=== PATIENT | female | born 1985 | race Caucasian/White ===

== ENCOUNTER 2020-05-03 10:27 | Observation (INO) ==
[2020-05-03] MEDS ORDERED: ONDANSETRON INJ 2 MG/ML 2 ML VIAL IV STA (11:14)
[2020-05-03] MEDS ORDERED: SODIUM CHLORIDE 0.9% 1000ML 1,000 ML IV SCH (11:15)
--- NOTE | 2020-05-03 11:37 | XRay Report ---
KUB HISTORY: Generalized abdominal pain COMPARISON: Abdominal series 05/02/2020. FINDINGS: The bowel gas pattern is unremarkable. There are no dilated loops of small bowel to suggest an obstruction. No renal or ureteral calculi. A common bile duct stent is unchanged in position. A few punctate calcifications in the deep pelvis likely represent phleboliths. No pneumoperitoneum or p neumatosis. IMPRESSION: Unremarkable bowel gas pattern. No evidence for bowel obstruction. Common bile duct stent is unchange d in position. ACT 112: Negative or not required by law. Electronically signed by: Fer Allen M.D. 05/03/2020 11:36 AM
--- NOTE | 2020-05-03 11:38 | XRay Report ---
XR chest 1V portable HISTORY: Atypical chest pain COMPARISON: Abdominal series 05/02/2020. FINDINGS: The lungs are clear. Cardiac silhouette is normal in size. No pleural effusions. No pneumot horax. IMPRESSION: No acute process. ACT 112: Negative or not required by law. Electronically signed by: Fer Allen M.D. 05/03/2020 11:37 AM
[2020-05-03 11:40] LABS: Basophils # (auto) 0.01 K/uL (0-0.2); Basophils % (auto) 0.1 %; Eosinophils # (auto) 0.11 K/uL (0-0.5); Eosinophils % (auto) 1.3 %; Hematocrit (blood only) 38.5 % (37-47); Hemoglobin 12.8 g/dL (12.0-16.0); Immature Granulocytes # (auto) 0.01 K/uL (0.00-0.02); Immature Granulocytes % (auto) 0.1 %; Lymphocytes # (auto) 2.48 K/uL (1.2-3.4); Lymphocytes % (auto) 29.5 %; Mean Corpuscular Hemoglobin 27.9 pg (25-34); Mean Corpuscular Hgb Conc 33.2 g/dL (32-36); Mean Corpuscular Volume 83.9 fL (80-100); Mean Platelet Volume 11.3 fL (7.4-10.4); Monocytes # (auto) 0.46 K/uL (0.11-0.59); Monocytes % (auto) 5.5 %; Neutrophils # (auto) 5.34 K/uL (1.4-6.5); Neutrophils % (auto) 63.5 %; Platelet Count 188 K/uL (130-400); RDW Coefficient of Variation 13.6 % (11.5-14.5); RDW Standard Deviation 41.6 fL (36.4-46.3); Red Blood Count 4.59 M/uL (4.2-5.4); White Blood Count 8.41 K/uL (4.8-10.8)
[2020-05-03 11:52] LABS: Appearance Urine Cloudy (Clear); Bacteria Urine Automated Negative (Negative); Blood Urine 3+ (Negative); Color Urine Dark Yellow; Epithelial Cell Urine Auto >30 /lpf (0-5); Glucose Urine UA Negative (Negative); Ketones Urine Trace (Negative); Leukocyte Esterase Urine Trace (Negative); Nitrite Urine Negative (Negative); Protein Urine Trace (Negative); Specific Gravity Urine 1.032 (1.000-1.030); Urobilinogen Urine Negative (Negative)
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
[2020-05-03 11:56] LABS: Albumin Level 3.6 gm/dl (3.4-5.0); BUN Creatinine Ratio 19.6 (10-20); Est GFR (African American) 110.6; Est GFR (Non-African American) 95.4; Potassium 3.6 mmol/L (3.5-5.1)
[2020-05-03 11:57] LABS: Bilirubin Urine Negative (Negative); Ictotest Urine Negative (Negative)
[2020-05-03 12:00] LABS: Pregnancy Test, Serum Negative (Negative)
[2020-05-03 12:04] LABS: Albumin Globulin Ratio 1.2 (0.9-2); Bilirubin,Total 0.5 mg/dl (0.2-1); Cast Urine Automated 0 /lpf (0-5); Globulin 3.1 gm/dl (2.5-4.0); Mucus Urine Present (None Prsent); Total Protein 6.7 gm/dl (6.4-8.2)
[2020-05-03 12:11] LABS: Amphetamines+Metham, Urine Neg (Neg); Barbiturates, Urine Neg (Neg); Benzodiazepine, Urine Neg (Neg); Cocaine, Urine Neg (Neg); MDMA (Ecstacy), Urine Neg (Neg); Methadone, Urine Neg (Neg); Opiate, Urine Pos (Neg); Phencyclidine, Urine Neg (Neg)
[2020-05-03] MEDS: fentaNYL citrate 100 MCG/2 ML VIAL IV PRN ×2 (12:16→12:49)
--- NOTE | 2020-05-03 12:55 | Gastrointestinal Consultation ---
Date of Consultation May 03, 2020 Assessment & Plan (1) Acute pancreatitis after endoscopic retrograde cholangiopancreatography (ERCP): 35 y/o female with h/o CBD stone s/p extraction during ERCP on 05/01/20, presents for the second time in 2 days with abd pain, lipase 2600 and LFTs, WBC WNL, US yesterday with cholelithiasis, CBD 6 mm. Presentation c/w mild acute pancreatitis. - Recommend IVF with lactated ringers at 200 mL/hr - Analgesia PRN (pt is on Suboxone chronically) - Antiemetics PRN - Keep NPO - Trend lipase, LFTs, CBC - Consult general surgery for consideration of cholecystectomy this admission - Recommend tobacco avoidance Thank you for allowing us to participate in the care of this patient. Please call with any acute changes, questions or concerns. Please see addendum below with additional recommendation from my supervising physician. Supervising Physician Co-Signing Physician Notes I performed a history and physical examination of the patient today, including specifically on physical exam - soft abdomen. I have discussed the patient's management with the advanced practitioner. Please refer to the nurse practitioner's note for the documented findings and plan of care. Mild elevation in lipase post ERCP, feeling better now however needs cholecystectomy as she may have passed stones after her ERCP causing her pancreatitis. History of Present Illness History of Present Illness Pt is a 35 y/o female with PMHx substance abuse on Suboxone, who on 05/01/20 underwent ERCP with CBD stone extraction and placement of one plastic CBD stent (to be removed in 6 weeks); pt was referred for gen surg eval for cholecystectomy. She was seen back in the ER with abd pain yesterday and lipase was < 1,000, normal WBC, LFTs, KUB w/o free air, US unremarkable other than cholelithiasis. She was dc'd with pain control. Pt returned to the ER today with ongoing abd pain. Today lipase is 2,600, and LFTs, tbili, WBC still WNL. Repeat KUB unremarkable, CXR neg. She's afebrile. Has not eaten anything since Jello yesterday. She would like to have eval this admission cholecystectomy as she "can't wait any longer." No BM since Friday. Denies vomiting, hematemesis, melena, hematochezia, gas/bloating, fever, chills, jaundice, dark urine, win stool, chest pain, dyspnea. She does smoke; no ETOH. Allergies Allergy/AdvReac Type Severity Reaction Status Date / Time No Known Allergies Allergy Verified 05/03/20 11:54 Home Medications Home Medications Medication Instructions Recorded Confirmed Type buprenorphine HCl 2 - 4 mg SUBLINGUAL 05/18/19 05/03/20 History DAILY@0900,1400,2100 pantoprazole [Protonix] 40 mg PO QAM 04/27/20 05/03/20 History sucralfate [Carafate] 1 g PO ACHS 04/27/20 05/03/20 History ibuprofen 600 mg PO Q6H PRN 05/02/20 05/03/20 History tramadol 50 mg PO BID PRN 05/02/20 05/03/20 History Patient History Medical History Acute pancreatitis after endoscopic retrograde cholangiopancreatography (ERCP) Buprenorphine dependence Gall stones abdominal pain and poss stone lodge in duct GERD (gastroesophageal reflux disease) Hx of renal calculi Smoker Surgical History (Updated 05/03/20 @ 17:18 by Jose Barboza MD) History of kidney surgery repair of floating kidney and repair ureter Hx of section x 3 S/P ERCP (Inactive) 05/01/2020. MAC 4. Grade 1 view. 7.5ETT No issues. 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 Beliefs That Will Affect Care: None marital status: Single Current Living Situation: Family current occupational status: employed Other Information That Helps Us Care for You: No Feels Safe at Home: Yes Safety Concerns: Feels Safe At This Time Smoking Status: Current every day smoker Tobacco Type: cigarettes ; Cigarettes Per Day: 1/2 ppd ; Do You Dip or Chew Tobacco: No ; Second Hand Exposure: No ; Tobacco Cessation Education Requested by Patient: No Hx Alcohol Use: Yes Alcohol type: beer, wine and hard liquor Alcohol Intake Frequency: Daily Alcohol Intake Frequency Comment: Quit 6 years ago Hx Substance Use: No Review of Systems Constitutional: no fever and no chills Respiratory: no cough and no dyspnea Cardiovascular: no chest pain and no edema Additional Comments: no h/o CHF Gastrointestinal: as per Subjective / HPI Integumentary: no rash and no yellowing of the skin Physical Exam Constitutional: WD/WN, vitals as above no acute distress Eyes: + anicteric sclerae Respiratory: normal respiratory effort, lungs clear to auscultation Cardiovascular: Rate/Rhythm: regular rate and regular rhythm Extremities: no edema Gastrointestinal (Abdomen): Inspection/Auscultation: abdomen normal to inspection; abdomen not distended Percussion/Palpation: abdomen soft; no guarding mild generalized tenderness but moreso in the epigastrium/RUQ Skin: no rashes, warm and dry no jaundice Psychiatric: A+Ox3, euthymic affect Results & Data ([facility]) Vital Signs (Past 12 Hours) Vital Signs Temp Pulse Pulse Resp BP BP Pulse Ox 05/03/20 12:13 40 L 16 125/69 98 05/03/20 10:53 36.8 C 62 20 126/87 100 Laboratory Results 05/03/20 05/03/20 05/03/20 Range/Units 11:20 11:20 11:20 WBC (4.8-10.8) K/uL RBC (4.2-5.4) M/uL Hgb (12.0-16.0) g/dL Hct (37-47) % MCV (80-100) fL MCH (25-34) pg MCHC (32-36) g/dL RDW Std Deviation (36.4-46.3) fL RDW Coeff of Faizan (11.5-14.5) % Plt Count (130-400) K/uL MPV (7.4-10.4) fL Immature Gran % (Auto) % Neut % (Auto) % Lymph % (Auto) % [place] % (Auto) % Eos % (Auto) % Baso % (Auto) % Immature Gran # (Auto) (0.00-0.02) K/uL Neut # (Auto) (1.4-6.5) K/uL Lymph # (Auto) (1.2-3.4) K/uL [place] # (Auto) (0.11-0.59) K/uL Eos # (Auto) (0-0.5) K/uL Baso # (Auto) (0-0.2) K/uL Sodium (136-145) mmol/L Potassium (3.5-5.1) mmol/L Chloride (98-107) mmol/L Carbon Dioxide (21-32) mmol/L Anion Gap (3-11) BUN (7-18) mg/dl Creatinine (0.6-1.2) mg/dl Est Cr Clr Drug Dosing ml/min Est GFR ( Amer) Est GFR (Non-Af Amer) BUN/Creatinine Ratio (10-20) Glucose (70-99) mg/dl Calcium (8.5-10.1) mg/dl Total Bilirubin (0.2-1) mg/dl AST (15-37) U/L ALT (12-78) U/L Alkaline Phosphatase (45-117) U/L Total Protein (6.4-8.2) gm/dl Albumin (3.4-5.0) gm/dl Globulin (2.5-4.0) gm/dl Albumin/Globulin Ratio (0.9-2) Lipase (73-393) U/L HCG, Qual (Negative) Urine Color Dark Yellow Urine Appearance Cloudy A (Clear) Urine pH 5.0 (4.5-7.5) Ur Specific [place] 1.032 H (1.000-1.030) Urine Protein Trace H (Negative) Urine Glucose (UA) Negative (Negative) Urine Ketones Trace H (Negative) Urine Blood 3+ H (Negative) Urine Nitrite Negative (Negative) Urine Bilirubin Negative (Negative) Urine Urobilinogen Negative (Negative) Ur Leukocyte Esterase Trace H (Negative) Urine WBC (Auto) 1-5 (0-5) /hpf Urine RBC (Auto) 5-10 H (0-4) /hpf U Hyaline Cast (Auto) 0 (0-5) /lpf U Epithel Cells (Auto) >30 H (0-5) /lpf Urine Bacteria (Auto) Negative (Negative) Urine Mucus Present A (None Prsent) Urine Opiates Screen Pos H (Neg) U Codeine Confrm GC/MS Pending Ur Morphine (GC/MS) Pending Ur Hydrocodone (GC/MS) Pending Ur Norhydrocodone Pending Ur Noroxycodone Pending Urine Oxycodone (GC/MS) Pending U Oxymorphone GC/MS Pending Ur Methadone, Qual Neg (Neg) Ur Hydromorphone (GC/MS) Pending Urine Barbiturates Neg (Neg) Ur Phencyclidine (PCP) Neg (Neg) U Amphetamin/Meth Scrn Neg (Neg) MDMA (Ecstasy) Screen Neg (Neg) U Benzodiazepines Scrn Neg (Neg) Ur Cocaine Metabolite Neg (Neg) U Marijuana (THC) Screen Pos H (Neg) U Marijuana THC Carboxy Pending Drug Screen Comment Pending 05/03/20 05/03/20 05/03/20 Range/Units 11:20 11:20 11:20 WBC 8.41 (4.8-10.8) K/uL RBC 4.59 (4.2-5.4) M/uL Hgb 12.8 (12.0-16.0) g/dL Hct 38.5 (37-47) % MCV 83.9 (80-100) fL MCH 27.9 (25-34) pg MCHC 33.2 (32-36) g/dL RDW Std Deviation 41.6 (36.4-46.3) fL RDW Coeff of Faizan 13.6 (11.5-14.5) % Plt Count 188 (130-400) K/uL MPV 11.3 H (7.4-10.4) fL Immature Gran % (Auto) 0.1 % Neut % (Auto) 63.5 % Lymph % (Auto) 29.5 % [place] % (Auto) 5.5 % Eos % (Auto) 1.3 % Baso % (Auto) 0.1 % Immature Gran # (Auto) 0.01 (0.00-0.02) K/uL Neut # (Auto) 5.34 (1.4-6.5) K/uL Lymph # (Auto) 2.48 (1.2-3.4) K/uL [place] # (Auto) 0.46 (0.11-0.59) K/uL Eos # (Auto) 0.11 (0-0.5) K/uL Baso # (Auto) 0.01 (0-0.2) K/uL Sodium 139 (136-145) mmol/L Potassium 3.6 (3.5-5.1) mmol/L Chloride 108 H (98-107) mmol/L Carbon Dioxide 27 (21-32) mmol/L Anion Gap 4.0 (3-11) BUN 16 (7-18) mg/dl Creatinine 0.81 (0.6-1.2) mg/dl Est Cr Clr Drug Dosing 107.0 ml/min Est GFR ( Amer) 110.6 Est GFR (Non-Af Amer) 95.4 BUN/Creatinine Ratio 19.6 (10-20) Glucose 93 (70-99) mg/dl Calcium 9.0 (8.5-10.1) mg/dl Total Bilirubin 0.5 (0.2-1) mg/dl AST 22 (15-37) U/L ALT 33 (12-78) U/L Alkaline Phosphatase 54 (45-117) U/L Total Protein 6.7 (6.4-8.2) gm/dl Albumin 3.6 (3.4-5.0) gm/dl Globulin 3.1 (2.5-4.0) gm/dl Albumin/Globulin Ratio 1.2 (0.9-2) Lipase 2653 H (73-393) U/L HCG, Qual Negative (Negative) Urine Color Urine Appearance (Clear) Urine pH (4.5-7.5) Ur Specific [place] (1.000-1.030) Urine Protein (Negative) Urine Glucose (UA) (Negative) Urine Ketones (Negative) Urine Blood (Negative) Urine Nitrite (Negative) Urine Bilirubin (Negative) Urine Urobilinogen (Negative) Ur Leukocyte Esterase (Negative) Urine WBC (Auto) (0-5) /hpf Urine RBC (Auto) (0-4) /hpf U Hyaline Cast (Auto) (0-5) /lpf U Epithel Cells (Auto) (0-5) /lpf Urine Bacteria (Auto) (Negative) Urine Mucus (None Prsent) Urine Opiates Screen (Neg) U Codeine Confrm GC/MS Ur Morphine (GC/MS) Ur Hydrocodone (GC/MS) Ur Norhydrocodone Ur Noroxycodone Urine Oxycodone (GC/MS) U Oxymorphone GC/MS Ur Methadone, Qual (Neg) Ur Hydromorphone (GC/MS) Urine Barbiturates (Neg) Ur Phencyclidine (PCP) (Neg) U Amphetamin/Meth Scrn (Neg) MDMA (Ecstasy) Screen (Neg) U Benzodiazepines Scrn (Neg) Ur Cocaine Metabolite (Neg) U Marijuana (THC) Screen (Neg) U Marijuana THC Carboxy Drug Screen Comment
--- NOTE | 2020-05-03 13:32 | History & Physical Report ---
Date of Service May 03, 2020 Assessment & Plan (1) Acute pancreatitis after endoscopic retrograde cholangiopancreatography (ERCP): This is a 35-year-old female who has significant PMH of drug abuse, tobacco abuse, GERD, BEE who presents to ED secondary to abdominal pain x2 days. Of significance patient underwent EGD, EUS and ERCP on 05/01/[address] Castaneda. S/P EGD, EUS, ERCP with stone extraction, sphincterotomy and biliary stent placement on 05/01/[address] Castaneda. Now presents with post ERCP pancreatitis, Lipase 2,653 ( was 914 05/02/2020). LFTS unremarkable. Afebrile. No s/sx of SIRS/Sepsis. Admit to med/surg Consult GI - appreciate their input NPO LR @ 200cc/hr IV morphine q4h prn pain consult surgery per GI for evaluation for cholecystectomy this admission follow LFT, Lipase Senna S daily to prevent constipation prn antiemetics (2) Buprenorphine dependence: pt is currently taking 8mg subutex daily, split into 3 doses. She does not get this prescribed and takes her boyfriends supply. She states Suboxone does not work for her and this is why she stopped seeing pain management because that is all they would prescribe her. "If I don't take subutex I relapse." Pt will need referral to appropriate pain management prior to discharge/or consult inpatient hold subutex for now as she will be receiving IV morphine monitor closely (3) Tobacco abuse: smoking cessation encouraged and counseled declines nicotine patch at this time (4) GERD (gastroesophageal reflux disease): give pepcid 20mg IVP x 1 now continue PPI, carafate as prescribed (5) DVT prophylaxis: SCDs, teds, encourage ambulation Disposition: Admit to medical Follow-up: PCP Dr. Bernard upon discharge Patient was seen and examined in collaboration with Dr. Spann, please see addendum History of Present Illness Chief Complaint: Abdominal pain x 2 days. Primary Care Provider: Juvencio Bernard MD This is a 35-year-old female who has significant PMH of drug abuse, tobacco abuse, GERD, BEE who presents to ED secondary to abdominal pain x2 days. Of significance patient underwent EGD, EUS and ERCP on 05/01/[address] Castaneda. 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 She was discharged to home on day of surgery. She admits to ever since waking up from surgery having abdominal pain that continues to get worse. Pain is mostly in the epigastrium but does radiate to right upper and left upper quadrants. Pain is constant, made worse with movement and deep breathing, improved with rest, rated 10 on a 10. She denies any associated fever, chills, sweats, nausea, vomiting, chest pain, or shortness of breath, dysuria, increased urgency or frequency with urination. She does complain of hematuria secondary to current menses. She has not had a BM since surgery but has been belching. Of significance prior to surgery she did undergo GI work-up secondary to abdominal pain and bloating. She did have a right upper quadrant ultrasound which revealed diffuse increased echogenicity in the liver with classified as a nonspecific finding. Could be related to fatty infiltration versus other diffuse hepatocellular processes. Also revealed cholelithiasis, CBD increased at 6.3 mm in diameter. This prompted the above procedure. She also underwent gastric emptying study which did reveal delayed emptying. It is recommended she has an eventual cholecystectomy. She has tried tramadol and Percocet for her pain without relief. She is also been smoking marijuana, last use this morning which did alleviate pain. She denies ASA or NSAID use. Unfortunately she does have history of drug abuse in which she is currently taking Subutex. The Subu jesús is not prescribed by physician as she takes her boyfriends, up to 8 mg a day. She was seen and evaluated in ED yesterday, 05/02, secondary to worsening abdominal pain. She was found to have elevated lipase in the 900s. She was seen and evaluated by GI in ED who felt pain was out of proportion to current condition. She was hydrated appropriately and discharged home on a few Percocet. Unfortunately she presented back today with return of abdominal pain and lipase not elevated greater than 2000. In ED CBC and CMP relatively unremarkable. Lipase elevated at 2653. Beta hCG negative. Urinalysis consistent with dehydration. Urine drug screen positive for opiates and marijuana. Chest x-ray and KUB were unremarkable. KUB did reveal biliary stent placement. She remained hemodynamically stable in ED. She did receive 1 L IVF along with IV fentanyl. Allergies Allergy/AdvReac Type Severity Reaction Status Date / Time No Known Allergies Allergy Verified 05/03/20 11:54 Home Medications Home Medications Medication Instructions Recorded Confirmed Type buprenorphine HCl 2 - 4 mg SUBLINGUAL 05/18/19 05/03/20 History DAILY@0900,1400,2100 pantoprazole [Protonix] 40 mg PO QAM 04/27/20 05/03/20 History sucralfate [Carafate] 1 g PO ACHS 04/27/20 05/03/20 History ibuprofen 600 mg PO Q6H PRN 05/02/20 05/03/20 History tramadol 50 mg PO BID PRN 05/02/20 05/03/20 History Past Med/Surg History Medical History Buprenorphine dependence Gall stones abdominal pain and poss stone lodge in duct GERD (gastroesophageal reflux disease) Hx of renal calculi Smoker Surgical History History of kidney surgery repair of floating kidney and repair ureter Hx of section x 3 Family History Father Hypertension Alcohol abuse Social History Preferred Language: [place]ian Communication Ability: Effective Brush Hand Required: No Beliefs That Will Affect Care: None marital status: Single Current Living Situation: Family current occupational status: employed Other Information That Helps Us Care for You: No Feels Safe at Home: Yes Safety Concerns: Feels Safe At This Time Smoking Status: Current every day smoker Tobacco Type: cigarettes ; Cigarettes Per Day: 1/2 ppd ; Do You Dip or Chew Tobacco: No ; Second Hand Exposure: No ; Tobacco Cessation Education Requested by Patient: No Hx Alcohol Use: Yes Alcohol type: beer, wine and hard liquor Alcohol Intake Frequency: Daily Alcohol Intake Frequency Comment: Quit 6 years ago Hx Substance Use: No Review of Systems Review of Systems: All systems reviewed & are unremarkable except as noted in HPI & below Physical Exam Physical Exam: Constitutional: WD/WN, female, vitals as above, NAD, sitting up in bed, pleasant, conversing easily Head: Normocephalic, Atraumatic Eyes: PERRL, conjunctivae normal, anicteric sclerae ENMT: external ear and nose normal, oropharynx normal, dry membranes Neck: trachea midline, no thyromegaly normal visual inspection Respiratory: normal respiratory effort, lungs clear to auscultation, no wheeze, rales, rhonchi. Normal insp/exp effort, no accessory muscle use Cardiovascular: RRR, no murmur, no edema, lower extremity varicosities. vessels: no JVD or carotid bruit Chest: normal inspection of chest Abdomen: Diminished bowel sounds, distended abdomen, soft, diffusely tender, no rebound, no guarding, no rigidity, no hepatosplenomegaly Musculoskeletal: no cyanosis or clubbing, extremities motor strength 5/5 Skin: no rashes, warm and dry normal turgor Neurologic: PERRL, EOMI, accommodation nl, no face palsy, no dysarthria CN's II-XI intact bilaterally and moves all extremities Psychiatric: A+Ox3, euthymic affect Lymphatic: no cervical or axillary lymphadenopathy : deferred Results & Data Results & Data ([facility]) Vital Signs (Past 12 Hours) Vital Signs Temp Pulse Pulse Resp BP BP Pulse Ox 05/03/20 13:00 53 L 23 122/86 100 05/03/20 12:30 51 L 20 119/65 98 05/03/20 12:13 40 L 16 125/69 98 05/03/20 12:00 48 L 16 125/69 98 05/03/20 10:53 36.8 C 62 20 126/87 100 Laboratory Results Short CBC 05/03/20 Range/Units 11:20 WBC 8.41 (4.8-10.8) K/uL Hgb 12.8 (12.0-16.0) g/dL Hct 38.5 (37-47) % Plt Count 188 (130-400) K/uL BMP 05/03/20 11:20 Sodium 139 Potassium 3.6 Chloride 108 H Carbon Dioxide 27 BUN 16 Creatinine 0.81 Glucose 93 Calcium 9.0 Liver Function 05/03/20 Range/Units 11:20 Total Bilirubin 0.5 (0.2-1) mg/dl AST 22 (15-37) U/L ALT 33 (12-78) U/L Alkaline Phosphatase 54 (45-117) U/L Albumin 3.6 (3.4-5.0) gm/dl Urine 05/03/20 Range/Units 11:20 Urine Color Dark Yellow Urine Appearance Cloudy A (Clear) Urine pH 5.0 (4.5-7.5) Ur Specific [place] 1.032 H (1.000-1.030) Urine Protein Trace H (Negative) Urine Glucose (UA) Negative (Negative) Diagnostic Findings CXR: IMPRESSION: No acute process. KUB: IMPRESSION: Unremarkable bowel gas pattern. No evidence for bowel obstruction. Common bile duct stent is unchanged in position. Medications Administered Fentanyl Citrate (Fentanyl Citrate) 50 mcg IV Q15M PRN PRN Reason: Pain Stop: 05/17/20 12:09 Last Admin: 05/03/20 12:49 Dose: 50 mcg Documented by: [id number] Admin: 05/03/20 12:16 Dose: 50 mcg Documented by: [id number] Discontinued Medications Sodium Chloride (Nss 1000ml) 1,000 mls @ 999 mls/hr IV .Q1H1M PAKO Stop: 05/03/20 12:15 Last Infusion: 05/03/20 12:33 Dose: 0 mls/hr Documented by: [id number] Admin: 05/03/20 11:35 Dose: 999 mls/hr Documented by: [id number] Ondansetron HCl (Zofran) 4 mg IV NOW STA Stop: 05/03/20 11:15 Last Admin: 05/03/20 11:35 Dose: 4 mg Documented by: [id number] Code Status & VTE Plan Code Status Full Code VTE Prophylaxis Plan VTE Prophylaxis will be ordered: Yes Supervising Physician Co-Signing Physician Notes Attending Addendum: care coordinated with LUIS Rucker please refer to her notes for full details, I agree with her notes patient seen and examined, records reviewed by myself as well on exam, patient seen with LUIS Amaya at bedside throughout whole encounter Patient reports severe epigastric pain radiating to her flanks, pressure, rated as 10 out of 10 when severe Also has intermittent nausea No fever or chills, shortness of breath, chest pain, palpitations, dizziness no other symptoms VS noted and reviewed oriented x 3, not in distress, speaks in sentences with no effort nor accessory muscle use normal rate, regular rhythm, no murmurs clear breath sounds bilaterally non distended, soft, positive moderate tenderness to epigastric region, no Thomas sign no bipedal edema, erythema, warmth no neuro deficits WBC 8.4 Hg 12.8 Crea 0.81 Lipase 2653 ASSESSMENT AND PLAN Post ERCP pancreatitis in the setting of cholelithiasis Status post ERCP, CBD stone removal, CBD stent placement 05/01/2020 --Vigorous lactated Ringer's, pain control with morphine as needed, n.p.o. --GI consulted, recommend general surgery consultation --General surgery recommends possible cholecystectomy tomorrow History of drug use --Patient admits to taking Subutex, from his significant other's prescription --Will be on PRN morphine at this time --Urine drug screen positive for opiates and marijuana --Counseling done Encouraged to follow with her own painter and body mechanic apprentice other diagnoses and plan of care as per LUIS Balderas notes Jez Spann MD
[2020-05-03] MEDS: LACTATED RINGER'S 1,000 ML IV SCH ×2 (14:00→19:47)
[2020-05-03] MEDS ORDERED: ACETAMINOPHEN 325 MG TAB PO PRN (14:04)
[2020-05-03] MEDS ORDERED: FAMOTIDINE 20MG/5ML IV PUSH IV STA (14:04)
[2020-05-03] MEDS ORDERED: ALUMINUM/MAGNESIUM SUSP 30 ML UDC PO PRN (14:04)
[2020-05-03] MEDS ORDERED: ONDANSETRON INJ 2 MG/ML 2 ML VIAL IV PRN (14:04)
[2020-05-03] MEDS ORDERED: FAMOTIDINE 20 MG in SYRINGE 3 ML IV ONE (14:30)
--- NOTE | 2020-05-03 14:40 | Surgery Consultation ---
Date of Consultation May 03, 2020 Assessment & Plan (1) Gallstones: This is a 35y F with a PMH of gallstones who presents to the [facility] ED on 05/03/20 with back/neck/and abdominal pain s/p ERCP performed on 05/01 now found to have pancreatitis. This is patient's second visit to the ED s/p GI procedure with complaints of persistent pain. Workup in the ED revealed + cholelithiasis without evidence of acute cholecystitis. LFT's within normal limits and WBC normal. Lipase is elevated >2000. On examination patient's abdomen is soft and she has generalized tenderness throughout, worse in the epigastric region. We have been asked to consider cholecystectomy this admission. We will trend patient's labs and tentatively place her on the OR schedule for tomorrow. Please keep NPO with IVF. Dr Thompson- pt seen- for lap rosey tomorrow if lipase decreasing History of Present Illness Attending Physician: Jez Spann MD History of Present Illness This is a 35y F with a PMH of gallstones who presents to the [facility] ED on 05/03/20 with back/neck/and abdominal pain. Of significance the patient was worked up as an outpatient for abdominal pain and was found to have cholelithiasis and dilated CBD. She underwent an ERCP on 05/01 where choledocholithiasis was found and removed, and biliary stent placed. Plan to follow up with surgery within a couple wks as an outpatient. Patient states that since awaking from the ERCP procedure she has had pain, mostly in her neck, back, and abdomen. She was discharged to home on Tramadol without any relief. She returned to the ED ye sterday where workup was overall unremarkable outside of a lipase of 914. RUQ US showed + stones without evidence of cholecystitis, with an appropriately placed stent. She was discharged to home with some Percocet. Today the patient continued with pain, went to see her PCP who per patient did not have much to offer, therefore she returned to the ED today. In the ED patient's labs show a WBC: 8.4, LFTs within normal limits, and Lipase elevated at 2653. Patient reports her pain is a 20/10. She endorses + nausea, difficulty taking a breath 2/2 pain. She denies vomiting, diarrhea, fevers, chills, or urinary symptoms. In regards to her abdominal pain it's mostly located in the upper abdomen and flanks. Her past abdominal surgeries include a x4 and laparoscopic surgery for a floating kidney. She was admitted under medicine with GI and surgical consultations. Allergies Allergy/AdvReac Type Severity Reaction Status Date / Time No Known Allergies Allergy Verified 05/03/20 11:54 Home Medications Home Medications Medication Instructions Recorded Confirmed Type buprenorphine HCl 2 - 4 mg SUBLINGUAL 05/18/19 05/03/20 History DAILY@0900,1400,2100 pantoprazole [Protonix] 40 mg PO QAM 04/27/20 05/03/20 History sucralfate [Carafate] 1 g PO ACHS 04/27/20 05/03/20 History ibuprofen 600 mg PO Q6H PRN 05/02/20 05/03/20 History tramadol 50 mg PO BID PRN 05/02/20 05/03/20 History Patient History Medical History Buprenorphine dependence Gall stones abdominal pain and poss stone lodge in duct GERD (gastroesophageal reflux disease) Hx of renal calculi Smoker Surgical History History of kidney surgery repair of floating kidney and repair ureter Hx of section x 3 Family History Father Hypertension Alcohol abuse Social History Preferred Language: Bahraini Communication Ability: Effective Manager Security And Safety Required: No Beliefs That Will Affect Care: None marital status: Single Current Living Situation: Family current occupational status: employed Other Information That Helps Us Care for You: No Feels Safe at Home: Yes Safety Concerns: Feels Safe At This Time Smoking Status: Current every day smoker Tobacco Type: cigarettes ; Cigarettes Per Day: 1/2 ppd ; Do You Dip or Chew Tobacco: No ; Second Hand Exposure: No ; Tobacco Cessation Education Requested by Patient: No Hx Alcohol Use: Yes Alcohol type: beer, wine and hard liquor Alcohol Intake Frequency: Daily Alcohol Intake Frequency Comment: Quit 6 years ago Hx Substance Use: No Review of Systems Constitutional: no fever and no chills Respiratory: some difficulty taking a breath due to pain Gastrointestinal: + abdominal pain and + nausea; no vomiting and no change in bowel habits Physical Exam Physical Exam: awake/alert Constitutional: well developed and well nourished; no acute distress Respiratory: normal respiratory effort Gastrointestinal (Abdomen): Inspection/Auscultation: + abdominal surgical scar ( and laparoscopic scars); abdomen not distended Percussion/Palpation: + abdomen tender (diffuse ttp of the abdomen, worse in epigastric region) and abdomen soft Results & Data Vital Signs (Past 12 Hours) Vital Signs Temp Pulse Pulse Resp BP BP Pulse Ox 05/03/20 14:05 36.7 C 43 L 18 131/62 98 05/03/20 13:00 53 L 23 122/86 100 05/03/20 12:30 51 L 20 119/65 98 05/03/20 12:13 40 L 16 125/69 98 05/03/20 12:00 48 L 16 125/69 98 05/03/20 10:53 36.8 C 62 20 126/87 100 KUB HISTORY: Generalized abdominal pain COMPARISON: Abdominal series 05/02/2020. FINDINGS: The bowel gas pattern is unremarkable. There are no dilated loops of small bowel to suggest an obstruction. No renal or ureteral calculi. A common bile duct stent is unchanged in position. A few punctate calcifications in the deep pelvis likely represent phleboliths. No pneumoperitoneum or pneumatosis. IMPRESSION: Unremarkable bowel gas pattern. No evidence for bowel obstruction. Common bile duct stent is unchanged in position. ACT 112: Negative or not required by law. Electronically signed by: Fer Allen M.D. 05/03/2020 11:36 AM ULTRASOUND RIGHT UPPER QUADRANT ABDOMEN CLINICAL HISTORY: Generalized abdominal pain. Recent ERCP and biliary stent placement. COMPARISON STUDY: Abdominal CT dated 08/08/2013. KUB dated 05/02/2020. TECHNIQUE: Real-time, grayscale, and color flow sonography of the right upper quadrant of the abdomen was performed. Images are reviewed in the transverse and longitudinal planes. FINDINGS: Liver: The liver is normal in size and echotexture. The liver is elongated suggesting Delicia's lobe variant anatomy. There is no intrahepatic biliary ductal dilatation. The main portal vein is patent. Gallbladder: The gallbladder is filled with numerous shadowing gallstones. There is no gallbladder wall thickening or pericholecystic fluid. A sonographic Thomas's sign is reportedly absent. The common bile duct measures up to 0.6 cm in diameter. The common bile duct stent is in place. Pancreas: Visualized portions of the pancreatic head and body are normal in appearance. Right kidney: Survey images of the right kidney demonstrate normal size and echotexture. There is no hydronephrosis. Ascites: None. IMPRESSION: 1. Cholelithiasis without sonographic evidence of acute cholecystitis. 2. A common bile duct stent is in place. No intrahepatic biliary ductal dilatation is identified. ACT 112: Negative or not required by law. Electronically signed by: Harvey Rene M.D. 05/02/2020 11:21 AM PG Care Time/CCT Total # of Minutes Spent Total Time Spent with Patient: Total time spent is greater than 50% in coordination of care (as documented) at patient's floor/unit and/or counseling patient: Coding Level of Care Code 91641 Office/OBS Consult Lvl 3 Diagnoses Gallstones K80.20
[2020-05-03] MEDS: SUCRALFATE 1 GM TAB PO SCH ×2 (15:30→20:49)
[2020-05-03] MEDS: DOCUSATE SODIUM/SENNA 50/8.6MG TAB PO SCH (15:31)
[2020-05-03] MEDS: MoRPHine SULFATE 4 MG/ML 1 ML CARP\\VIAL IV PRN ×2 (17:13→21:40)
--- NOTE | 2020-05-03 17:20 | Anesthesiology Consultation ---
Date of Service May 03, 2020 Assessment & Plan (1) Encounter for pre-operative examination: Chart Review Chart Review: Acceptable Risk for Surgery and Patient NOT seen in Pre Admission Testing Consults Requested none History Surgery Operation Date: 05/04/20 09:10 Proposed Procedures p Laparoscopic Cholecystectomy, Possible Cholangiogram - Casper Thompson MD, FACS Height/Weight Height: 5 ft 6 in Weight: 82.6 kg Allergies Allergy/AdvReac Type Severity Reaction Status Date / Time No Known Allergies Allergy Verified 05/03/20 11:54 Medications Home Medications Medication Instructions Recorded Confirmed Last Taken buprenorphine HCl 2 - 4 mg SUBLINGUAL 05/18/19 05/03/20 05/03/20 DAILY@0900,1400,2100 pantoprazole [Protonix] 40 mg PO QAM 04/27/20 05/03/20 05/03/20 sucralfate [Carafate] 1 g PO ACHS 04/27/20 05/03/20 05/03/20 ibuprofen 600 mg PO Q6H PRN 05/02/20 05/03/20 05/03/20 07:00 tramadol 50 mg PO BID PRN 05/02/20 05/03/20 05/03/20 01:00 Active Medications Generic Name Dose Route Start Last Admin Trade Name Freq PRN Reason Stop Dose Admin Lactated Ringer's 1,000 mls @ 200 mls/hr 05/03/20 14:00 05/03/20 14:00 Lr IV 06/02/20 13:59 200 mls/hr .Q5H PAKO Administration Morphine Sulfate 4 mg 05/03/20 14:04 05/03/20 17:13 Morphine Sulfate IV 05/17/20 14:03 4 mg Q4H PRN Administration Pain Senna/Docusate Sodium 1 tab 05/03/20 14:30 05/03/20 15:31 Senokot S PO 06/02/20 14:29 1 tab QAM PAKO Administration Sucralfate 1 gm 05/03/20 16:30 05/03/20 15:30 Carafate Tab PO 06/02/20 16:29 1 gm ACHS PAKO Administration Past Medical History Medical History Acute pancreatitis after endoscopic retrograde cholangiopancreatography (ERCP) Buprenorphine dependence Gall stones abdominal pain and poss stone lodge in duct GERD (gastroesophageal reflux disease) Hx of renal calculi Smoker Past Family History Family History Father Hypertension Alcohol abuse Past Surgical History Surgical History (Updated 05/03/20 @ 17:18 by Jose Barboza MD) History of kidney surgery repair of floating kidney and repair ureter Hx of section x 3 S/P ERCP (Inactive) 05/01/2020. MAC 4. Grade 1 view. 7.5ETT No issues. Past Anesthesia History No Hx of Anesthesia Complications and No Family Hx of Anesthesia Complications History of PONV No Hx of PONV and No Hx of Motion Sickness Social History Smoking Status: Current every day smoker tobacco type: cigarettes Smoking cigarettes per day: 1/2 ppd Do You Dip or Chew Tobacco: No Hx Alcohol Use: Yes Alcohol type: beer, wine and hard liquor alcohol intake frequency: other Alcohol Intake Frequency Comment: not drinking presently nor two years Hx Substance Use: No substance use type: former substance user and marijuana Physical Exam Vital Signs Last Vital Signs Temp 36.7 C 05/03/20 14:05 Pulse 43 L 05/03/20 14:05 Resp 18 05/03/20 14:05 BP 131/62 05/03/20 14:05 Pulse Ox 98 05/03/20 14:05 Testing Laboratory Results 05/03/20 11:20 05/03/20 11:20 Urine Color Dark Yellow 05/03/20 11:20 Urine Appearance Cloudy (Clear) A 05/03/20 11:20 Urine pH 5.0 (4.5-7.5) 05/03/20 11:20 Ur Specific [place] 1.032 (1.000-1.030) H 05/03/20 11:20 Urine Protein Trace (Negative) H 05/03/20 11:20 Urine Glucose (UA) Negative (Negative) 05/03/20 11:20 Urine Ketones Trace (Negative) H 05/03/20 11:20 Urine Nitrite Negative (Negative) 05/03/20 11:20 Ur Leukocyte Esterase Trace (Negative) H 05/03/20 11:20 Urine WBC (Auto) 1-5 /hpf (0-5) 05/03/20 11:20 Urine RBC (Auto) 5-10 /hpf (0-4) H 05/03/20 11:20 U Hyaline Cast (Auto) 0 /lpf (0-5) 05/03/20 11:20 U Epithel Cells (Auto) >30 /lpf (0-5) H 05/03/20 11:20 Urine Bacteria (Auto) Negative (Negative) 05/03/20 11:20
[2020-05-04] MEDS: LACTATED RINGER'S 1,000 ML IV SCH ×5 (00:05→20:49)
[2020-05-04] MEDS: MoRPHine SULFATE 4 MG/ML 1 ML CARP\\VIAL IV PRN (04:29)
[2020-05-04] MEDS ORDERED: cefOXitin 2,000 MG in DEXTROSE 5% 50 ML IV SCH (06:00)
--- NOTE | 2020-05-04 06:23 | History & Physical Bridge Note ---
Date of Service May 04, 2020 History & Physical Bridge Note I have examined the patient, reviewed the History & Physical and in the interval since the performance of the History & Physical I have noted the following changes of clinical significance: no changes noted Patient receiving pain medication No acute changes during the evening Check a.m. lab And to proceed with laparoscopic cholecystectomy if lipase decreasing
[2020-05-04 07:15] LABS: Basophils # (auto) 0.01 K/uL (0-0.2); Basophils % (auto) 0.1 %; Eosinophils # (auto) 0.16 K/uL (0-0.5); Eosinophils % (auto) 2.1 %; Hemoglobin 12.4 g/dL (12.0-16.0); Immature Granulocytes # (auto) 0.01 K/uL (0.00-0.02); Immature Granulocytes % (auto) 0.1 %; Mean Corpuscular Hemoglobin 27.8 pg (25-34); Mean Corpuscular Hgb Conc 33.5 g/dL (32-36); Mean Platelet Volume 11.7 fL (7.4-10.4); Monocytes # (auto) 0.57 K/uL (0.11-0.59); Monocytes % (auto) 7.6 %; Neutrophils # (auto) 4.65 K/uL (1.4-6.5); Neutrophils % (auto) 62.1 %; Platelet Count 152 K/uL (130-400); RDW Coefficient of Variation 13.3 % (11.5-14.5); RDW Standard Deviation 40.5 fL (36.4-46.3); Red Blood Count 4.46 M/uL (4.2-5.4)
[2020-05-04] MEDS: DOCUSATE SODIUM/SENNA 50/8.6MG TAB PO SCH (07:50)
[2020-05-04] MEDS: SUCRALFATE 1 GM TAB PO SCH ×4 (07:50→20:39)
[2020-05-04] MEDS: PANTOprazole 40 MG TAB PO SCH (07:50)
[2020-05-04 07:52] LABS: Albumin Level 2.9 gm/dl (3.4-5.0); BUN Creatinine Ratio 13.5 (10-20); Calcium 8.3 mg/dl (8.5-10.1); Creatinine Clr Calc Pharmacy 129.4 ml/min; Est GFR (African American) 133.9; Est GFR (Non-African American) 115.5
[2020-05-04 07:54] LABS: Bilirubin,Total 0.7 mg/dl (0.2-1); Globulin 2.9 gm/dl (2.5-4.0); Total Protein 5.8 gm/dl (6.4-8.2)
[2020-05-04] MEDS ORDERED: ONDANSETRON INJ 2 MG/ML 2 ML VIAL IV PRN ×2 (08:50→13:12)
[2020-05-04] MEDS ORDERED: KETOROLAC 30 MG/ML VIAL IV PRN (08:50)
[2020-05-04] MEDS ORDERED: PROMETHAZINE HCL 12.5 MG in SODIUM CHLORIDE 0.9% 50 ML IV PRN ×2 (08:50→13:12)
[2020-05-04] MEDS ORDERED: ePHEDrine sulfate 50 MG/ML AMP IV PRN (08:50)
[2020-05-04] MEDS ORDERED: METOCLOPRAMIDE HCL INJ 5 MG/ML 2 ML VIAL IV PRN (08:50)
[2020-05-04] MEDS ORDERED: ATROPINE SULFATE 0.1 MG/ML 10ML SYR IV PRN (08:50)
[2020-05-04] MEDS ORDERED: CONRAY 60% 50 ML VIAL ONE (09:31)
[2020-05-04] MEDS ORDERED: BUPIVACAINE 0.5 % 5 MG/1 ML MPF 30ML VIAL ONE (09:31)
--- NOTE | 2020-05-04 11:04 | Post Operative Brief Note ---
PG Immediate Post Op with CF Date of Surgery May 04, 2020 Pre & Post Diagnosis Operation Date: 05/04/20 09:10 Pre-Op Diagnosis: Gallstones Post-Op Diagnosis: Gallstones, severe acute/ chronic cholecystitis with bilious ascites I identified the patient and participated in the time-out.: Yes Procedure Operation Date: 05/04/20 09:10 Actual Procedures p Laparoscopic Cholecystectomy(Not Applicable) - Casper Thompson MD, FACS Surgeon Casper Thompson MD, FACS Counter Checker Rhonda Ortiz Estimated Blood Loss 10 Findings Consistent with Post-Op Diagnosis Specimens Specimen Description: A: gallbladder and contents Drains Fadi-Wilson Drain
[2020-05-04] MEDS ORDERED: ACETAMINOPHEN 1,000 MG/100 ML VIAL IV ONE (11:15)
--- NOTE | 2020-05-04 11:25 | Operative Report (OR) ---
DATE OF OPERATION: 05/04/2020 NAME OF OPERATION: Laparoscopic cholecystectomy. PREOPERATIVE DIAGNOSIS: Acute cholecystitis. POSTOPERATIVE DIAGNOSIS: Acute cholecystitis with chronic cholecystitis and bilious ascites. STAFF SURGEON: Casper Thompson MD. [employer] HELPER: LUIS Bautista. ANESTHESIA: General. DESCRIPTION OF PROCEDURE: The patient was brought in the operating room and placed on the operating table in supine position. Her abdomen was prepped and draped in usual fashion. My embroidery assistant helped with prepping, draping, removal of the gallbladder and closure of the wound. 0.5% plain Marcaine was used to anesthetize all incisions. Incision was made just in the upper part of the umbilicus under a piercing, carrying dissection down to the fascia, placing a Veress needle producing pneumoperitoneum, placing an 11 mm port. Under visualization, three 5 mm ports were placed, 1 cephalad and 2 laterally. Gallbladder was very distended and edematous consistent with acute cholecystitis. She also had scar tissue consistent with chronic cholecystitis. She did have some bilious ascites. Dissection was carried out at the caitlin hepatis, identifying the cystic duct and cystic artery. These were clipped and transected. The gallbladder was dissected away from the liver bed in the usual fashion, showing severe edema in the wall of the gallbladder. The gallbladder was placed in an Endobag. After appropriate irrigation and hemostasis, a #15 round Fadi-Wilson drain was placed through the lateral 5 mm port site, secured using 3-0 nylon suture, placed into the subhepatic space. The patient had prior ERCP with stent placement. At this point, the gallbladder was removed through the umbilical site. I did have to enlarge the fascial defect because the gallbladder was very large with huge stones. The fascial defect at the umbilicus closed using interrupted 0 PDS suture. Skin reapproximated at the umbilicus using 5-0 Prolene suture. Other sites using subcuticular 4-0 Monocryl with Dermabond. The patient was transferred to recovery room in stable condition. I attest to the content of the Intraoperative Record and any orders documented therein. Any exception s are noted below.
[2020-05-04] MEDS: fentaNYL citrate 100 MCG/2 ML VIAL IV PRN ×4 (11:49→12:10)
[2020-05-04] MEDS: HYDROmorphone INJ 2 MG/ML SYR/VIAL IV PRN ×4 (12:15→20:39)
[2020-05-04] MEDS ORDERED: PROMETHAZINE HCL 25 MG in SODIUM CHLORIDE 0.9% 50 ML IV PRN (13:12)
[2020-05-04] MEDS ORDERED: SODIUM CHLORIDE 0.9% 1000ML 1,000 ML IV SCH (13:12)
--- NOTE | 2020-05-04 13:27 | Anesthesiology Progress Note ---
Date of Service May 04, 2020 Anesthesia Post Procedure Vital Signs Vital Signs: Temp Pulse Pulse Resp BP Pulse Ox 05/04/20 13:13 37.1 C 55 L 16 141/86 H 98 05/04/20 12:55 37.4 C 51 L 17 132/94 96 05/04/20 12:45 37.4 C 52 L 14 154/72 H 97 05/04/20 12:35 37.4 C 51 L 20 165/77 H 97 05/04/20 12:25 37.4 C 48 L 47 H 149/80 H 94 05/04/20 12:15 54 L 94 H 137/81 94 05/04/20 12:05 54 L 23 118/73 99 05/04/20 11:55 57 L 24 140/76 99 05/04/20 11:45 75 22 124/72 96 05/04/20 11:36 36.9 C 65 18 145/95 H 100 05/04/20 08:40 37.2 C 44 L 18 119/71 97 05/04/20 07:00 36.7 C 54 L 16 117/65 95 05/03/20 23:33 36.8 C 40 L 18 125/71 96 05/03/20 19:49 36.7 C 41 L 16 130/68 94 05/03/20 14:05 36.7 C 43 L 18 131/62 98 Pain Intensity Abdomen: Pain Intensity: 5 Generalized: Pain Intensity: 5 Transfer of Care Handoff Completed per policy Notes Mental Status: alert / awake / arousable and participated in evaluation Patient Amnestic to Procedure: Yes Nausea / Vomiting: adequately controlled Pain: adequately controlled Airway Patency, RR, SpO2: stable & adequate BP & HR: stable & adequate Hydration State: stable & adequate Anesthetic Complications: no major complications apparent
[2020-05-04] MEDS: HYDROmorphone INJ 1 MG/ML SYRINGE IV PRN ×2 (13:41→18:20)
--- NOTE | 2020-05-04 19:28 | Hospitalist Progress Note ---
Date of Service May 04, 2020 Assessment & Plan (1) Acute pancreatitis after endoscopic retrograde cholangiopancreatography (ERCP): Present on admission with worsening SOB S/P EGD, EUS, ERCP with stone extraction, sphincterotomy and biliary stent placement on 05/01/[address] Castaneda. Lipase on admission 2653 Received IVF, Lipase 716 today Continue IVF Now presents with post ERCP pancreatitis, Lipase 2,653 ( was 914 05/02/2020). LFTS unremarkable. Afebrile. No s/sx of SIRS/Sepsis. Continue pain control Monitor lipase and LFT Gastro on board recommended surgical eval (2) Acute cholecystitis: S/P Laparoscopic cholecystectomy done today by surgery Dr. Thompson No post op complication Continue pain med Starting on clear liquid diet Monitor Electrolytes and Liver enzymes (3) Buprenorphine dependence: pt is currently taking 8mg subutex daily, split into 3 doses. She does not get this prescribed and takes her boyfriends supply. She states Suboxone does not work for her and this is why she stopped seeing pain management because that is all they would prescribe her. "If I don't take subutex I relapse." Pt will need referral to appropriate pain management prior to discharge/or consult inpatient hold subutex for now as she will be receiving IV morphine monitor closely (4) Marijuana abuse: UDS positive for Marijuana Counseling on Marijuana cessation (5) Tobacco abuse: Smoking cessation encouraged and counseled declines nicotine patch at this time (6) GERD (gastroesophageal reflux disease): continue PPI, carafate as prescribed (7) DVT prophylaxis: SCDs, teds, encourage ambulation Admission and Anticipated Discharge Date Admission Date: May 03, 2020 Subjective Pt was seen and examined Sitting in bed with no distress Pt said that her pain is much better after the procedure She said that she felt sore around the surgical incision area Denies any chest pain, palpitation, dizziness and SOB Physical Exam Physical Exam: General- No acute distress Head- atraumatic Eyes- PERRL, EOMI, ENT- oropharynx clear Neck- supple, no JVD Lungs- clear to auscultation Heart- regular rhythm; no murmur Abdomen- normal bowel sounds, soft, +tender Extremities- no calf tenderness Neuro- alert, oriented x 3; PERRL, EOMI; no facial palsy; no dysarthria Skin- warm & dry Results & Data Results & Data ([facility]) Vital Signs (Past 12 Hours) Vital Signs Temp Pulse Pulse Resp BP Pulse Ox 05/04/20 15:58 36.9 C 49 L 18 142/86 H 97 05/04/20 14:09 37 C 48 L 16 130/77 96 05/04/20 13:29 37.3 C 52 L 18 133/60 95 05/04/20 13:13 37.1 C 55 L 16 141/86 H 98 05/04/20 12:55 37.4 C 51 L 17 132/94 96 05/04/20 12:45 37.4 C 52 L 14 154/72 H 97 05/04/20 12:35 37.4 C 51 L 20 165/77 H 97 05/04/20 12:25 37.4 C 48 L 47 H 149/80 H 94 05/04/20 12:15 54 L 94 H 137/81 94 05/04/20 12:05 54 L 23 118/73 99 05/04/20 11:55 57 L 24 140/76 99 05/04/20 11:45 75 22 124/72 96 05/04/20 11:36 36.9 C 65 18 145/95 H 100 05/04/20 08:40 37.2 C 44 L 18 119/71 97
[2020-05-05] MEDS: LACTATED RINGER'S 1,000 ML IV SCH ×4 (00:39→21:33)
[2020-05-05] MEDS: HYDROmorphone INJ 0.5 MG/0.5 ML SYR IV PRN ×2 (00:43→05:37)
[2020-05-05 06:18] LABS: Basophils # (auto) 0.01 K/uL (0-0.2); Basophils % (auto) 0.1 %; Eosinophils # (auto) 0.08 K/uL (0-0.5); Eosinophils % (auto) 1.1 %; Hematocrit (blood only) 36.3 % (37-47); Hemoglobin 12.2 g/dL (12.0-16.0); Immature Granulocytes # (auto) 0.01 K/uL (0.00-0.02); Immature Granulocytes % (auto) 0.1 %; Lymphocytes # (auto) 1.91 K/uL (1.2-3.4); Lymphocytes % (auto) 25.3 %; Mean Corpuscular Hemoglobin 27.5 pg (25-34); Mean Corpuscular Hgb Conc 33.6 g/dL (32-36); Mean Corpuscular Volume 81.8 fL (80-100); Mean Platelet Volume 12.2 fL (7.4-10.4); Monocytes % (auto) 9.3 %; Neutrophils # (auto) 4.83 K/uL (1.4-6.5); Neutrophils % (auto) 64.1 %; Platelet Count 164 K/uL (130-400); RDW Coefficient of Variation 13.2 % (11.5-14.5); RDW Standard Deviation 39.8 fL (36.4-46.3); Red Blood Count 4.44 M/uL (4.2-5.4); White Blood Count 7.54 K/uL (4.8-10.8)
[2020-05-05 06:54] LABS: BUN Creatinine Ratio 10.4 (10-20); Bilirubin Direct 0.1 mg/dl (0-0.2); Calcium 8.6 mg/dl (8.5-10.1); Creatinine Clr Calc Pharmacy 139.8 ml/min; Est GFR (African American) 137.3; Est GFR (Non-African American) 118.5; Potassium 3.6 mmol/L (3.5-5.1)
[2020-05-05 06:57] LABS: Bilirubin,Total 0.5 mg/dl (0.2-1); Phosphorus 3.4 mg/dl (2.5-4.9)
--- NOTE | 2020-05-05 07:59 | Surgery Progress Note ---
Date of Service May 05, 2020 Assessment & Plan (1) Hx laparoscopic cholecystectomy: Patient had severe acute cholecystitis with evidence of chronic cholecystitis and very large gallstones Her drainage is serous and likely secondary to her pancreatitis but her lipase is normalizing She feels much better this morning Consider supportive care today possible discharge tomorrow-would likely remove her drain prior to discharge Would continue her antibiotics for 5 more days from my standpoint and can be p.o. on discharge Results & Data Vital Signs (Past 12 Hours) Vital Signs Temp Pulse Pulse Resp BP Pulse Ox 05/05/20 07:54 36.8 C 50 L 20 143/86 H 99 05/04/20 23:33 48 L 05/04/20 23:22 36.9 C 39 L 18 151/80 H 96 PG Care Time/CCT Total # of Minutes Spent Total Time Spent with Patient: Total time spent is greater than 50% in coordination of care (as documented) at patient's floor/unit and/or counseling patient: Coding Level of Care Code None Diagnoses Hx laparoscopic cholecystectomy Z90.49
[2020-05-05] MEDS: SUCRALFATE 1 GM TAB PO SCH ×4 (08:13→20:05)
[2020-05-05] MEDS: PANTOprazole 40 MG TAB PO SCH (08:13)
[2020-05-05] MEDS: DOCUSATE SODIUM/SENNA 50/8.6MG TAB PO SCH (08:13)
[2020-05-05] MEDS: HYDROmorphone INJ 1 MG/ML SYRINGE IV PRN ×3 (09:08→16:52)
--- NOTE | 2020-05-05 18:51 | Hospitalist Progress Note ---
Date of Service May 05, 2020 Assessment & Plan (1) Acute pancreatitis after endoscopic retrograde cholangiopancreatography (ERCP): Present on admission with worsening SOB S/P EGD, EUS, ERCP with stone extraction, sphincterotomy and biliary stent placement on 05/01/[address] Castaneda. Lipase on admission 2653 Received IVF Lipase normal Now presents with post ERCP pancreatitis, Lipase 2,653 ( was 914 05/02/2020). LFTS unremarkable. Afebrile. No s/sx of SIRS/Sepsis. Continue pain control Monitor lipase and LFT Gastro on board recommended surgical eval (2) Acute cholecystitis: S/P day #1 Laparoscopic cholecystectomy done today by surgery Dr. Thompson No post op complication Continue pain med Diet advance to full liquid diet as tolerated Monitor Electrolytes and Liver enzymes (3) Buprenorphine dependence: pt is currently taking 8mg subutex daily, split into 3 doses. She does not get this prescribed and takes her boyfriends supply. She states Suboxone does not work for her and this is why she stopped seeing pain management because that is all they would prescribe her. "If I don't take subutex I relapse." Pt will need referral to appropriate pain management prior to discharge/or consult inpatient hold subutex for now as she will be receiving IV morphine monitor closely (4) Marijuana abuse: UDS positive for Marijuana Counseling on Marijuana cessation (5) Tobacco abuse: Smoking cessation encouraged and counseled declines nicotine patch at this time (6) GERD (gastroesophageal reflux disease): continue PPI, carafate as prescribed (7) DVT prophylaxis: SCDs, teds, encourage ambulation Disposition Will discharge home tomorrow Admission and Anticipated Discharge Date Admission Date: May 03, 2020 Subjective Pt was seen and examined Lying in bed with no distress Pt said that she continues to have pain, but improved Denies any chest pain, palpitation, dizziness and SOB Physical Exam Physical Exam: General- No acute distress Head- atraumatic Eyes- PERRL, EOMI, ENT- oropharynx clear Neck- supple, no JVD Lungs- clear to auscultation Heart- regular rhythm; no murmur Abdomen- normal bowel sounds, soft, +tender Extremities- no calf tenderness Neuro- alert, oriented x 3; PERRL, EOMI; no facial palsy; no dysarthria Skin- warm & dry Results & Data Results & Data ([place]) Vital Signs (Past 12 Hours) Vital Signs Temp Pulse Resp BP Pulse Ox 05/05/20 16:26 36.9 C 54 L 18 148/78 H 98 05/05/20 11:47 36.8 C 77 16 124/79 95 05/05/20 07:54 36.8 C 50 L 20 143/86 H 99
[2020-05-05] MEDS: HYDROmorphone INJ 2 MG/ML SYR/VIAL IV PRN ×2 (19:38→23:58)
[2020-05-05] MEDS: HEPARIN SOD 5,000 UNIT/0.5 ML VIAL SQ SCH (20:06)
[2020-05-06 01:44] LABS: Codeine Urine NEGATIVE ng/mL (<50); Hydrocodone Urine NEGATIVE ng/mL (<50); Hydromor Urine NEGATIVE ng/mL (<50); Marijuana Quant, GCMS Urine >5000 ng/mL (<5); Morphine Urine 572 ng/mL (<50); Norhydrocodone Conf Ur NEGATIVE ng/mL (<50); Noroxycodone Urine 7220 ng/mL (<50); Oxycodone Urine 6120 ng/mL (<50); Oxymorph Urine 3320 ng/mL (<50)
[2020-05-06] MEDS: HYDROmorphone INJ 2 MG/ML SYR/VIAL IV PRN (05:32)
[2020-05-06] MEDS: LACTATED RINGER'S 1,000 ML IV SCH (07:58)
[2020-05-06] MEDS: HEPARIN SOD 5,000 UNIT/0.5 ML VIAL SQ SCH (08:02)
[2020-05-06] MEDS: PANTOprazole 40 MG TAB PO SCH (08:02)
[2020-05-06] MEDS: SUCRALFATE 1 GM TAB PO SCH ×2 (08:02→12:03)
[2020-05-06] MEDS: DOCUSATE SODIUM/SENNA 50/8.6MG TAB PO SCH (08:02)
[2020-05-06] MEDS ORDERED: OXYCODONE HCL IR 5 MG TAB (IMMEDIATE RELEASE) PO PRN (08:16)
[2020-05-06] MEDS: HYDROmorphone INJ 1 MG/ML SYRINGE IV PRN (08:34)
[2020-05-06 08:56] LABS: Albumin Level 2.9 gm/dl (3.4-5.0); BUN Creatinine Ratio 7.8 (10-20); Calcium 8.7 mg/dl (8.5-10.1); Creatinine Clr Calc Pharmacy 108.4 ml/min; Est GFR (African American) 112.3; Est GFR (Non-African American) 96.9; Potassium 3.5 mmol/L (3.5-5.1)
[2020-05-06 08:59] LABS: Albumin Globulin Ratio 1.1 (0.9-2); Bilirubin,Total 0.3 mg/dl (0.2-1); Globulin 2.7 gm/dl (2.5-4.0); Total Protein 5.6 gm/dl (6.4-8.2)
--- NOTE | 2020-05-06 10:40 | Surgery Progress Note ---
Date of Service doing better, no significant abdominal pain, no nausea, no vomiting, no fever, ONOFRE 190 ml/day, clear May 06, 2020 Assessment & Plan (1) Hx laparoscopic cholecystectomy: doing better, but ONOFRE out put-190, pt wants to go home today, with ONOFRE drainage, pt wll contact DR. Thompson next Friday for remove ONOFRE, the post-op care instruction was given, Supervising Physician Co-Signing Physician Notes I performed a history and physical examination of the patient today, including specifically on physical exam - soft abdomen. I have discussed the patient's management with the advanced practitioner. Please refer to the nurse practitioner's note for the documented findings and plan of care. Mild elevation in lipase post ERCP, feeling better now however needs cholecystectomy as she may have passed stones after her ERCP causing her pancreatitis. Subjective Pt was seen and examined Lying in bed with no distress Pt said that she continues to have pain, but improved Denies any chest pain, palpitation, dizziness and SOB Physical Exam Constitutional: WD/WN, vitals as above well developed and well nourished Eyes: PERRL, conjunctivae normal, anicteric sclerae ENMT: external ear and nose normal, oropharynx normal Respiratory: normal respiratory effort, lungs clear to auscultation Cardiovascular: RRR, no murmur, no edema Gastrointestinal (Abdomen): Percussion/Palpation: abdomen soft mild tenderness at RUQ, no rebound pain, ONOFRE intact Musculoskeletal: no cyanosis or clubbing, extremities motor strength 5/5 Skin: no rashes, warm and dry Neurologic: awake Psychiatric: Orientation: alert and oriented x 3 Results & Data Vital Signs (Past 12 Hours) Vital Signs Temp Pulse Resp BP Pulse Ox 05/06/20 08:30 54 L 05/06/20 07:40 36.5 C 44 L 16 147/83 H 96 05/05/20 23:34 36.7 C 55 L 16 141/84 H 98 Laboratory Results Abnormal lab results 05/03/20 05/06/20 Range/Units 11:20 08:13 BUN 6 L (7-18) mg/dl BUN/Creatinine Ratio 7.8 L (10-20) Total Protein 5.6 L (6.4-8.2) gm/dl Albumin 2.9 L (3.4-5.0) gm/dl Ur Morphine (GC/MS) 572 H (<50) ng/mL Ur Noroxycodone 7220 H (<50) ng/mL Urine Oxycodone (GC/MS) 6120 H (<50) ng/mL U Oxymorphone GC/MS 3320 H (<50) ng/mL U Marijuana THC Carboxy >5000 H (<5) ng/mL
[2020-05-06] MEDS ORDERED: PROPOFOL IV EMULSION 10 MG/ML 20 ML VIAL IV ONE (12:36)
[2020-05-06] MEDS ORDERED: HYDROmorphone INJ 2 MG/ML SYR/VIAL IV ONE (12:36)
[2020-05-06] MEDS ORDERED: ONDANSETRON INJ 2 MG/ML 2 ML VIAL IV ONE (12:36)
[2020-05-06] MEDS ORDERED: NEOSTIGMINE METHYLSULFATE 5 MG/5 ML SYR IV ONE (12:36)
[2020-05-06] MEDS ORDERED: ROCURONIUM BROMIDE 10 MG/ML 5 ML VIAL IV ONE (12:36)
[2020-05-06] MEDS ORDERED: SUCCINYLCHOLINE CHLORIDE 20 MG/ML 10 ML VIAL IV ONE (12:36)
[2020-05-06] MEDS ORDERED: DEXAMETHASONE SOD INJ 4 MG/ML VIAL IV ONE (12:36)
[2020-05-06] MEDS ORDERED: LIDOCAINE HCL 2% 2 ML VIAL/AMP(20MG/ML) INFIL ONE (12:36)
[2020-05-06] MEDS ORDERED: fentaNYL citrate 100 MCG/2 ML VIAL IV ONE (12:36)
[2020-05-06] MEDS ORDERED: MIDAZOLAM HCL 1 MG/ML 2ML VIAL IV ONE (12:36)
[2020-05-06] MEDS ORDERED: GLYCOPYRROLATE 0.2 MG/ML VIAL IM ONE (12:36)
--- NOTE | 2020-05-06 14:59 | Discharge Summary ---
Date of Service May 06, 2020 Admission HPI Per Admitting Provider This is a 35-year-old female who has significant PMH of drug abuse, tobacco abuse, GERD, BEE who presents to ED secondary to abdominal pain x2 days. Of significance patient underwent EGD, EUS and ERCP on 05/01/[address] Castaneda. 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 She was discharged to home on day of surgery. She admits to ever since waking up from surgery having abdominal pain that continues to get worse. Pain is mostly in the epigastrium but does radiate to right upper and left upper quadrants. Pain is constant, made worse with movement and deep breathing, improved with rest, rated 10 on a 10. She denies any associated fever, chills, sweats, nausea, vomiting, chest pain, or shortness of breath, dysuria, increased urgency or frequency with urination. She does complain of hematuria secondary to current menses. She has not had a BM since surgery but has been belching. Of significance prior to surgery she did undergo GI work-up secondary to abdominal pain and bloating. She did have a right upper quadrant ultrasound which revealed diffuse increased echogenicity in the liver with classified as a nonspecific finding. Could be related to fatty infiltration versus other diffuse hepatocellular processes. Also revealed cholelithiasis, CBD increased at 6.3 mm in diameter. This prompted the above procedure. She also underwent gastric emptying study which did reveal delayed emptying. It is recommended she has an eventual cholecystectomy. She has tried tramadol and Percocet for her pain without relief. She is also been smoking marijuana, last use this morning which did alleviate pain. She denies ASA or NSAID use. Unfortunately she does have history of drug abuse in which she is currently taking Subutex. The Subutex is not prescribed by physician as she takes her boyfriends, up to 8 mg a day. She was seen and evaluated in ED yesterday, 05/02, secondary to worsening abdo shiva pain. She was found to have elevated lipase in the 900s. She was seen and evaluated by GI in ED who felt pain was out of proportion to current condition. She was hydrated appropriately and discharged home on a few Percocet. Unfortunately she presented back today with return of abdominal pain and lipase not elevated greater than 2000. In ED CBC and CMP relatively unremarkable. Lipase elevated at 2653. Beta hCG negative. Urinalysis consistent with dehydration. Urine drug screen positive for opiates and marijuana. Chest x-ray and KUB were unremarkable. KUB did reveal biliary stent placement. She remained hemodynamically stable in ED. She did receive 1 L IVF along with IV fentanyl. Admission Exam Per Admitting Provider Constitutional: WD/WN, female, vitals as above, NAD, sitting up in bed, pleasant, conversing easily Head: Normocephalic, Atraumatic Eyes: PERRL, conjunctivae normal, anicteric sclerae ENMT: external ear and nose normal, oropharynx normal, dry membranes Neck: trachea midline, no thyromegaly normal visual inspection Respiratory: normal respiratory effort, lungs clear to auscultation, no wheeze, rales, rhonchi. Normal insp/exp effort, no accessory muscle use Cardiovascular: RRR, no murmur, no edema, lower extremity varicosities. vessels: no JVD or carotid bruit Chest: normal inspection of chest Abdomen: Diminished bowel sounds, distended abdomen, soft, diffusely tender, no rebound, no guarding, no rigidity, no hepatosplenomegaly Musculoskeletal: no cyanosis or clubbing, extremities motor strength 5/5 Skin: no rashes, warm and dry normal turgor Neurologic: PERRL, EOMI, accommodation nl, no face palsy, no dysarthria CN's II-XI intact bilaterally and moves all extremities Psychiatric: A+Ox3, euthymic affect Lymphatic: no cervical or axillary lymphadenopathy : deferred Principal Diagnosis 1) Acute pancreatitis after endoscopic retrograde cholangiopancreatography (ERCP): (2) Acute cholecystitis: (3) Buprenorphine dependence: (4) Marijuana abuse: (5) Tobacco abuse: (6) GERD (gastroesophageal reflux disease): Discharge Exam General- No acute distress Head- atraumatic Eyes- PERRL, EOMI, ENT- oropharynx clear Neck- supple, no JVD Lungs- clear to auscultation Heart- regular rhythm; no murmur Abdomen- normal bowel sounds, soft, +tender Extremities- no calf tenderness Neuro- alert, oriented x 3; PERRL, EOMI; no facial palsy; no dysarthria Skin- warm & dry Discharge Data Allergies Allergy/AdvReac Type Severity Reaction Status Date / Time No Known Allergies Allergy Verified 05/03/20 11:54 Consultations 05/03/20 12:27 ED Decision to Admit Stat 05/03/20 13:26 Consult General Surgery Routine 05/03/20 14:04 Consult Gastroenterology Routine Procedures Performed Operation Date: 05/04/20 09:10 Actual Procedures p Laparoscopic Cholecystectomy(Not Applicable) - Casper Thompson MD, FACS Ordered Studies XR chest 1V portable HISTORY: Atypical chest pain COMPARISON: Abdominal series 05/02/2020. FINDINGS: The lungs are clear. Cardiac silhouette is normal in size. No pleural effusions. No pneumothorax. IMPRESSION: No acute process. ACT 112: Negative or not required by law. Electronically signed by: Fer Allen M.D. 05/03/2020 11:37 AM Dictated: 05/03/20 1136 Transcribed: 05/03/20 1136 KUB HISTORY: Generalized abdominal pain COMPARISON: Abdominal series 05/02/2020. FINDINGS: The bowel gas pattern is unremarkable. There are no dilated loops of small bowel to suggest an obstruction. No renal or ureteral calculi. A common bile duct stent is unchanged in position. A few punctate calcifications in the deep pelvis likely represent phleboliths. No pneumoperitoneum or pneumatosis. IMPRESSION: Unremarkable bowel gas pattern. No evidence for bowel obstruction. Common bile duct stent is unchanged in position. ACT 112: Negative or not required by law. Electronically signed by: Fer Allen M.D. 05/03/2020 11:36 AM Dictated: 05/03/20 1135 Transcribed: 05/03/20 1135 Hospital Course (1) Acute pancreatitis after endoscopic retrograde cholangiopancreatography (ERCP): Present on admission with worsening SOB S/P EGD, EUS, ERCP with stone extraction, sphincterotomy and biliary stent placement on 05/01/[address] Castaneda. Lipase on admission 2653 Received IVF Lipase normal and LFT trending down Now presents with post ERCP pancreatitis, Lipase 2,653 ( was 914 05/02/2020). LFTS unremarkable. Afebrile. No s/sx of SIRS/Sepsis. Continue pain control Clinically improves (2) Acute cholecystitis: S/P day #2 Laparoscopic cholecystectomy done today by surgery Dr. Thompson No post op complication Continue pain med Tolerated full liquid diet, will advance to soft diet Monitor Electrolytes and Liver enzymes OK from surgery standpoint to discharge home Will follow up with Surgery on Friday for ONOFRE removal (3) Buprenorphine dependence: pt is currently taking 8mg subutex daily, split into 3 doses. She does not get this prescribed and takes her boyfriends supply. She states Suboxone does not work for her and this is why she stopped seeing pain management because that is all they would prescribe her. "If I don't take subutex I relapse." Pt will need referral to appropriate pain management prior to discharge/or consult inpatient hold subutex for now as she will be receiving IV morphine monitor closely (4) Marijuana abuse: UDS positive for Marijuana Counseling on Marijuana cessation (5) Tobacco abuse: Smoking cessation encouraged and counseled declines nicotine patch at this time (6) GERD (gastroesophageal reflux disease): continue PPI, carafate as prescribed (7) DVT prophylaxis: SCDs, teds, encourage ambulation Disposition Will discharge home Total Time Total Time Spent Total Time Spent (In Minutes): 20 minutes Total Time Includes: Examination of the Patient, Discharge Planning, Medication Reconciliation, Communication With Other Providers and Other Discharge Plan Discharge Items Patient Disposition: Home - Self-Care Reason For Visit: POST ERCP PANCREATITIS Discharge Diagnosis: laparoscopic cholecystectomy Condition on Discharge: Good Activity: Per Instructions section Activity Comment: light activity for 4 weeks Lifting: No more than 10 pounds Bathing Comment: may shower, no soaking in tubs Exercise/Sports: Wait until after follow-up appointment Exercise Comment: light activity for 4 weeks Driving/Machine Use: Resume 3 days after discharge Non-emergency contact: Primary Care Provider Call non-emergency contact if: you have any medication questions, your symptoms worsen, your pain is not controlled, your pain is worsening, your pain is unusual for you, you have a fever, your temperature is above 101.5, your wound has increased redness, your wound has increased drainage and your wound pain has increased Follow-up/Referrals: Casper Thompson MD, FACS [Physician] - Casper Hudson MD [Staff Physician] - (follow up Dr. Thompson next Friday for remove ONOFRE, Agree-I have documented within the medical record.) Juvencio Bernard MD [Primary Care Provider] - 05/10/20 2:40 pm (05/10/2020 2:40 PM Provider Juvencio Bernard MD Department Family [facility] ) Diet: Regular Addtl Attending Provider Instructions: SPECIAL CARE INSTRUCTIONS: empty ONOFRE every with recording out-put, * Cover incisions and change daily for comfort/drainage. * May use ibuprofen for pain as tolerated. * Expect some swelling and bruising. Call your doctor if: * Temperature above 101 degrees * Pain not relieved by pain medicine ordered * There is increased drainage or redness from any incision * You have any unanswered questions or concerns [phone]. FOLLOW UP VISIT: If not already scheduled, please call the office for a follow-up visit. OFFICE PHONE NUMBER: Dr. Thompson Office Pending Studies at Discharge: Yes Studies:: surgical pathology Stand-Alone Forms: [facility] [employer], Smoking Cessation Medications and DC Order Prescriptions: New ciprofloxacin HCl [Cipro] 500 mg tablet 500 mg PO BID Qty: 10 RF: 0 oxycodone-acetaminophen [Percocet] 5-325 mg tablet 1 tab PO Q6H PRN (Reason: pain) Qty: 14 RF: 0 oxycodone-acetaminophen [Percocet] 5-325 mg tablet 1 tab PO Q6H PRN (Reason: pain) Qty: 30 RF: 0 Continued buprenorphine HCl 8 mg tablet, sublingual 2 - 4 mg sublingual DAILY@0900,1400,2100 RF: 0 tramadol 50 mg Tablet 50 mg PO BID PRN (Reason: Pain) RF: 0 ibuprofen 600 mg tablet 600 mg PO Q6H PRN (Reason: Pain) RF: 0 sucralfate [Carafate] 1 gram Tablet 1 g PO ACHS RF: 0 pantoprazole [Protonix] 40 mg Tablet,Delayed Release (Dr/Ec) 40 mg PO QAM RF: 0 Discharge Orders: Discharge Order (Routine); Ordered 05/06/20 Ordered By: Lissy Farnsworth/Other Patient Handouts: Cholecystectomy Admission Data Admit Date/Time: 05/03/20 12:40 Attending Provider: Heydi Causey Admit Provider: Jez Spann Primary Care Provider: Juvencio Bernard Other Providers: Jez Spann ; Casper Thompson ; Abdulsamad,Molham Other Interventions: Discharge Summary Assessment (RN) Last Done: 05/06/20 11:41 DC Date/Time DO NOT enter until pt leaves facility: 05/06/20 12:37
== END 2020-05-06 12:37 | disposition home or self-care (01) ==
LOC: ED 10:27 → 2N 12:40 → SUATTDRO 12:40 → INTOOBSV 12:40 → 2N 13:04 → 3N 05-05 23:22